=== PATIENT | female | born 1935 | race Caucasian/White ===

== ENCOUNTER 2018-07-12 16:40 | Emergency (ER) | payer MEDICARE, OTHER ==
[~2018-07-12] VITALS: Ht 160 cm; Wt 65.8 kg
[2018-07-12 17:40] LABS: Urine Bacteria NONE SEEN /hpf (None Seen); Urine Blood Negative /uL (Negative); Urine Specific Gravity 1.005 (1.001-1.035); Urine WBC <1 /hpf (0 - 5)
[2018-07-12 17:48] LABS: Basophils # (auto) 0.1 uL; Basophils % (auto) 0.8 % (0.0-2.0); Eosinophils # (auto) 0.1 uL; Eosinophils % (auto) 1.4 % (0.0-7.0); Hematocrit 40.7 % (36.0-46.0); Hemoglobin 13.6 g/dL (12.2-16.2); Lymphocytes # (auto) 1.2 uL; Lymphocytes % (auto) 15.3 % (10.0-50.0); Mean Corpuscular Hemoglobin 31.6 pg (28.0-32.0); Mean Corpuscular Hgb Conc. 33.5 g/dL (32.0-36.0); Mean Corpuscular Volume 94.4 fL (80.0-100.0); Monocytes # (auto) 0.8 uL; Monocytes % (auto) 10.9 % (0.0-12.0); Neutrophils # (auto) 5.5 uL; Neutrophils % (auto) 71.6 % (37.0-80.0); Platelet Count (auto) 199 10^3/uL (140-450); Red Blood Cells 4.31 10^6/uL (4.0-5.20); Red Cell Distribution Width 13.5 % (11.8-14.3); White Blood Cell 7.7 10^3/uL (4.4-10.8)
[2018-07-12 18:01] LABS: Alanine Aminotransferase 22 U/L (13-56); Albumin 3.9 g/dL (3.4-5.0); Anion Gap 7 (5-15); Aspartate Aminotransferase 14 U/L (15-37); BUN/Creatinine Ratio 18.3; Blood Urea Nitrogen 15 mg/dL (7-18); Calcium 9.1 mg/dL (8.5-10.1); Carbon Dioxide 24 mmol/L (21-32); Chloride 101 mmol/L (98-107); GFR African American 85 mL/min; GFR Non-African American 71 mL/min; Glucose 107 mg/dL (74-106); Potassium 4.3 mmol/L (3.5-5.1); Sodium 132 mmol/L (136-145)
[2018-07-12 18:06] LABS: Alkaline Phosphatase 101 U/L (45-117); Bilirubin, Total 0.8 mg/dL (0.2-1.0); Total Protein 7.2 g/dL (6.4-8.2)
[2018-07-12] MEDS ORDERED: SODIUM CHLORIDE 0.9% 1,000 ML IV ONE (20:26)
[2018-07-12] MEDS ORDERED: MORPHINE SULFATE 4 MG/ML SYR/VIAL IV PRN (20:30)
[2018-07-12] MEDS ORDERED: ONDANSETRON HCL 4 MG/2 ML VIAL IV ONE ×2 (20:30→22:15)
[2018-07-12] MEDS ORDERED: PROPRANOLOL HCL 20 MG TAB PO ONE (22:30)
[2018-07-13] MEDS ORDERED: LORazepam 2MG/ML-1ML VIAL ONE (01:14)
[2018-07-13 01:35] VITALS: BP 149/75
[2018-07-13] MEDS ORDERED: LORazepam 2MG/ML-1ML VIAL IV ONE (01:45)
== END 2018-07-13 05:06 | disposition home or self-care (01) ==
LOC: ER 16:43
DX: R10.84 Generalized abdominal pain (principal); E87.1 Hypo-osmolality and hyponatremia; I11.0 Hypertensive heart disease with heart failure; I50.9 Heart failure, unspecified; E78.5 Hyperlipidemia, unspecified; Z88.1 Allergy status to other antibiotic agents; Z88.2 Allergy status to sulfonamides; Z88.8 Allergy status to other drugs, medicaments and biological substances
CPT/HCPCS: 36415; 71045; 71046; 74176; 80053; 81001; 83690; 83880; 84484; 85025; 93005; 96374; 96375; 96376; 99285; J2270; J2405; J7030

== ENCOUNTER 2022-04-29 14:25 | Emergency (ER) | payer MEDICARE, OTHER ==
[~2022-04-29] VITALS: Ht 160 cm; Wt 59.0 kg
[2022-04-29] MEDS ORDERED: LORazepam 0.5 MG TAB PO ONE (14:45)
[2022-04-29] MEDS ORDERED: HYDROcodone-ACET 10/325MG TAB PO ONE (14:45)
[2022-04-29 15:54] VITALS: BP 124/58
== END 2022-04-29 21:45 | disposition home or self-care (01) ==
LOC: EDBD 14:25 → ER 14:25
DX: M79.10 Myalgia, unspecified site (principal); F41.9 Anxiety disorder, unspecified; I10 Essential (primary) hypertension; E78.5 Hyperlipidemia, unspecified; Z90.89 Acquired absence of other organs

== ENCOUNTER 2022-10-18 15:38 | Inpatient (IN) | payer MEDICARE, OTHER ==
[~2022-10-18] VITALS: Ht 175.3 cm; Wt 52.0 kg
[2022-10-18] MEDS ORDERED: SODIUM CHLORIDE 0.9% 500 ML IVB ONE (17:00)
[2022-10-18 17:46] LABS: Basophils # (auto) 0.1 10 ^3/uL (0-0.2); Basophils % (auto) 1.6 % (0.0-2.0); Eosinophils # (auto) 0.1 10 ^3/uL (0-0.8); Eosinophils % (auto) 0.6 % (0.0-7.0); Hematocrit 31.1 % (36.0-46.0); Hemoglobin 10.1 g/dL (12.2-16.2); Lymphocytes # (auto) 1.4 10 ^3/uL (0.4-5.4); Lymphocytes % (auto) 15.5 % (10.0-50.0); Mean Corpuscular Hgb Conc. 32.5 g/dL (32.0-36.0); Monocytes # (auto) 0.5 10 ^3/uL (0-1.3); Monocytes % (auto) 5.6 % (0.0-12.0); Neutrophils # (auto) 6.7 10 ^3/uL (1.6-8.6); Neutrophils % (auto) 76.7 % (37.0-80.0); Red Blood Cells 4.04 10^6/uL (4.0-5.20); Red Cell Distribution Width 16.9 % (11.8-14.3); White Blood Cell 8.7 10^3/uL (4.4-10.8)
[2022-10-18 18:04] LABS: Albumin 3.4 g/dL (3.4-5.0); BUN/Creatinine Ratio 31.4; Calcium 9.5 mg/dL (8.5-10.1); Magnesium 2.4 mg/dL (1.6-2.6); Potassium 4.5 mmol/L (3.5-5.1)
[2022-10-18 18:07] LABS: Bilirubin, Total 0.3 mg/dL (0.2-1.0); Total Protein 6.8 g/dL (6.4-8.2)
[2022-10-18] MEDS ORDERED: ACETAMINOPHEN 325 MG TAB PO PRN (18:45)
[2022-10-18] MEDS ORDERED: MORPHINE SULFATE INJ 2 MG/ml SYRG IV PRN (18:45)
[2022-10-18] MEDS ORDERED: ONDANSETRON HCL 4 MG/2 ML VIAL IV PRN (18:45)
[2022-10-18] MEDS ORDERED: NITROGLYCERIN 0.4 MG SL TAB SL PRN (18:45)
[2022-10-18] MEDS ORDERED: DOCUSATE SOD 100 MG CAP PO PRN (18:45)
[2022-10-18] MEDS: SODIUM CHLORIDE 0.9% 1,000 ML IV SCH (20:05)
[2022-10-18] MEDS: HYDROcodone-ACET 5/325MG TAB PO PRN (22:42)
[2022-10-18 23:17] LABS: Urine Bacteria NONE SEEN /hpf (None Seen); Urine Blood Negative /uL (Negative); Urine Mucus FEW (None Seen); Urine Specific Gravity 1.021 (1.001-1.035); Urine WBC 2 /hpf (0 - 5)
[2022-10-18 23:40] LABS: Amphetamine Screen, Urine NEGATIVE (NEGATIVE); Barbiturate Scree,Urine NEGATIVE (NEGATIVE); Benzodiazephine Screen, Urine NEGATIVE (NEGATIVE); Cannabinoid Screen, Urine NEGATIVE (NEGATIVE); Cocaine Screen, Urine NEGATIVE (NEGATIVE); Opiate Scree,Urine POSITIVE (NEGATIVE); Phencyclidine Screen, Urine NEGATIVE (NEGATIVE)
[2022-10-19] MEDS: HYDROcodone-ACET 5/325MG TAB PO PRN (02:52)
[2022-10-19 06:36] LABS: Monocytes # (auto) 0.5 10 ^3/uL (0-1.3); Nucleated Red Blood Cells % 0.1 %; White Blood Cell 6.6 10^3/uL (4.4-10.8)
[2022-10-19 06:37] LABS: Basophils # (auto) 0.1 10 ^3/uL (0-0.2); Basophils % (auto) 1.1 % (0.0-2.0); Eosinophils # (auto) 0.2 10 ^3/uL (0-0.8); Eosinophils % (auto) 2.3 % (0.0-7.0); Hematocrit 28.6 % (36.0-46.0); Hemoglobin 9.5 g/dL (12.2-16.2); Lymphocytes # (auto) 1.8 10 ^3/uL (0.4-5.4); Lymphocytes % (auto) 26.5 % (10.0-50.0); Mean Corpuscular Hemoglobin 25.9 pg (28.0-32.0); Mean Corpuscular Hgb Conc. 33.2 g/dL (32.0-36.0); Mean Corpuscular Volume 77.8 fL (80.0-100.0); Monocytes % (auto) 7.7 % (0.0-12.0); Neutrophils # (auto) 4.1 10 ^3/uL (1.6-8.6); Neutrophils % (auto) 62.4 % (37.0-80.0); Red Blood Cells 3.68 10^6/uL (4.0-5.20); Red Cell Distribution Width 16.7 % (11.8-14.3)
[2022-10-19 07:07] LABS: Albumin 3.1 g/dL (3.4-5.0); BUN/Creatinine Ratio 23.7; Bilirubin, Total 0.6 mg/dL (0.2-1.0); Calcium 8.5 mg/dL (8.5-10.1); Potassium 3.6 mmol/L (3.5-5.1); Total Protein 6.5 g/dL (6.4-8.2)
[2022-10-19] MEDS: PANTOPRAZOLE 40 MG/10 ML VIAL INJ IV SCH (09:00)
[2022-10-19] MEDS ORDERED: LORazepam 2MG/ML-1ML VIAL IV PRN (10:30)
[2022-10-19 11:08] LABS: Folate (Folic Acid) > 24.00 ng/mL (5.38-24)
[2022-10-19] MEDS: SODIUM CHLORIDE 0.9% 1,000 ML IV SCH (11:27)
[2022-10-19] MEDS: HALOPERIDOL LACTATE 5 MG/ML INJ VIAL IM PRN (17:03)
[2022-10-19] MEDS: traZODone HCL 50 MG TAB PO SCH (21:55)
[2022-10-20] MEDS: HALOPERIDOL LACTATE 5 MG/ML INJ VIAL IM PRN (04:17)
[2022-10-20 06:19] LABS: Basophils # (auto) 0.1 10 ^3/uL (0-0.2); Basophils % (auto) 0.9 % (0.0-2.0); Eosinophils # (auto) 0.1 10 ^3/uL (0-0.8); Eosinophils % (auto) 1.2 % (0.0-7.0); Hematocrit 30.5 % (36.0-46.0); Hemoglobin 9.8 g/dL (12.2-16.2); Lymphocytes # (auto) 1.5 10 ^3/uL (0.4-5.4); Lymphocytes % (auto) 19.8 % (10.0-50.0); Monocytes # (auto) 0.7 10 ^3/uL (0-1.3); Monocytes % (auto) 9.9 % (0.0-12.0); Neutrophils # (auto) 5.1 10 ^3/uL (1.6-8.6); Neutrophils % (auto) 68.2 % (37.0-80.0); Nucleated Red Blood Cells % 0.1 %; Red Blood Cells 3.91 10^6/uL (4.0-5.20); Red Cell Distribution Width 17.4 % (11.8-14.3); White Blood Cell 7.5 10^3/uL (4.4-10.8)
[2022-10-20 06:45] LABS: Potassium 3.6 mmol/L (3.5-5.1)
[2022-10-20 06:54] LABS: Albumin 3.3 g/dL (3.4-5.0); BUN/Creatinine Ratio 20.9; Bilirubin, Total 0.5 mg/dL (0.2-1.0); Calcium 8.9 mg/dL (8.5-10.1); Total Protein 6.8 g/dL (6.4-8.2)
[2022-10-20] MEDS: SODIUM CHLORIDE 0.9% 1,000 ML IV SCH ×2 (08:15→17:19)
[2022-10-20] MEDS ORDERED: CYANOCOBALAMIN (B-12) 1000 MCG/1 ML VIAL IM ONE (09:15)
[2022-10-20] MEDS: CYANOCOBALAMIN 500 MCG TAB PO SCH (09:49)
[2022-10-20] MEDS: PANTOPRAZOLE 40 MG/10 ML VIAL INJ IV SCH (09:49)
[2022-10-20] MEDS ORDERED: MORPHINE SULFATE INJ 2 MG/ml SYRG IV PRN (16:15)
[2022-10-20 22:00] VITALS: BP 141/70
[2022-10-20 22:30] VITALS: BP_SYST 141; BP_DIAS 70; BP_DIAS 71
[2022-10-20] MEDS: traZODone HCL 50 MG TAB PO SCH (23:04)
[2022-10-20] MEDS: HYDROcodone-ACET 5/325MG TAB PO PRN (23:23)
[2022-10-21] VITALS (7 sets, daily range): BP systolic 111–151; BP diastolic 67–90
[2022-10-21] MEDS: CYANOCOBALAMIN 500 MCG TAB PO SCH (09:25)
[2022-10-21] MEDS: PANTOPRAZOLE 40 MG/10 ML VIAL INJ IV SCH (09:25)
[2022-10-21] MEDS: SODIUM CHLORIDE 0.9% 1,000 ML IV SCH (13:25)
[2022-10-21] MEDS ORDERED: MAGN400S25 PO (13:58)
[2022-10-21] MEDS ORDERED: CHOL20007 PO (13:58)
[2022-10-21] MEDS ORDERED: DOCU100T15 PO (13:58)
[2022-10-21] MEDS ORDERED: HYDR-4902 PO (13:58)
[2022-10-21] MEDS ORDERED: BISA10SU5 RE (13:58)
[2022-10-21] MEDS ORDERED: MECL12.514 PO (13:58)
[2022-10-21] MEDS ORDERED: EZET10TA22 PO (13:58)
[2022-10-21] MEDS ORDERED: IPRAAER6 IN (13:58)
[2022-10-21] MEDS ORDERED: ACET-1156 PO (13:58)
[2022-10-21] MEDS ORDERED: OMEP20TA PO (13:58)
[2022-10-21] MEDS ORDERED: VENL1TAB99 PO (13:58)
[2022-10-21] MEDS ORDERED: DIPH25CA29 PO (13:58)
[2022-10-21] MEDS ORDERED: CARV6.2551 PO (13:58)
[2022-10-21] MEDS ORDERED: SODIENE35 RE (13:58)
[2022-10-21] MEDS ORDERED: ATOR20TA PO (13:58)
[2022-10-21] MEDS ORDERED: DICY20TA PO (13:58)
[2022-10-21] MEDS: HYDROcodone-ACET 5/325MG TAB PO PRN ×2 (18:01→22:57)
[2022-10-21] MEDS: VENLAFAXINE HCL 37.5MG TABLET PO SCH (22:49)
[2022-10-21] MEDS: DICYCLOMINE HCL 10 MG CAP PO SCH (22:50)
[2022-10-21] MEDS: traZODone HCL 50 MG TAB PO SCH (22:50)
[2022-10-21] MEDS: MECLIZINE HCL 25 MG TAB PO SCH (22:51)
[2022-10-21] MEDS: CARVEDILOL 3.125 MG TAB PO SCH (22:52)
[2022-10-21] MEDS: ATORVASTATIN 20 MG TAB PO SCH (22:53)
[2022-10-22 05:00] VITALS: BP 146/73
[2022-10-22] MEDS: DICYCLOMINE HCL 10 MG CAP PO SCH ×3 (06:01→22:31)
[2022-10-22] MEDS: SODIUM CHLORIDE 0.9% 1,000 ML IV SCH (06:01)
[2022-10-22] MEDS: HYDROcodone-ACET 5/325MG TAB PO PRN ×3 (06:07→22:30)
[2022-10-22 09:00] VITALS: BP 116/56
[2022-10-22] MEDS: CHOLECALCIFEROL (VITD3) 1,000UNIT=25mCg TAB PO SCH (10:00)
[2022-10-22] MEDS: MECLIZINE HCL 25 MG TAB PO SCH ×2 (10:00→22:32)
[2022-10-22] MEDS: PANTOPRAZOLE 40 MG/10 ML VIAL INJ IV SCH (10:00)
[2022-10-22] MEDS: CYANOCOBALAMIN 500 MCG TAB PO SCH (10:00)
[2022-10-22] MEDS: EZETIMIBE 10 MG TABLET PO SCH (10:00)
[2022-10-22] MEDS: CARVEDILOL 3.125 MG TAB PO SCH ×2 (10:02→22:32)
[2022-10-22 17:00] VITALS: BP 139/55
[2022-10-22] MEDS: MILK OF MAGNESIA 30ML SUSP PO PRN (19:01)
[2022-10-22 22:00] VITALS: BP 127/57
[2022-10-22] MEDS: VENLAFAXINE HCL 37.5MG TABLET PO SCH (22:31)
[2022-10-22] MEDS: traZODone HCL 50 MG TAB PO SCH (22:31)
[2022-10-22] MEDS: ATORVASTATIN 20 MG TAB PO SCH (22:31)
[2022-10-23 05:00] VITALS: BP 157/60
[2022-10-23] MEDS: DICYCLOMINE HCL 10 MG CAP PO SCH ×3 (05:43→22:52)
[2022-10-23 06:07] LABS: Basophils # (auto) 0 10 ^3/uL (0-0.2); Basophils % (auto) 0.4 % (0.0-2.0); Eosinophils # (auto) 0.2 10 ^3/uL (0-0.8); Neutrophils # (auto) 3.7 10 ^3/uL (1.6-8.6)
[2022-10-23 06:10] LABS: Eosinophils % (auto) 3.1 % (0.0-7.0); Hematocrit 25.5 % (36.0-46.0); Hemoglobin 8.2 g/dL (12.2-16.2); Lymphocytes # (auto) 1.9 10 ^3/uL (0.4-5.4); Lymphocytes % (auto) 29.8 % (10.0-50.0); Mean Corpuscular Hemoglobin 25.2 pg (28.0-32.0); Mean Corpuscular Hgb Conc. 32.2 g/dL (32.0-36.0); Mean Corpuscular Volume 78.2 fL (80.0-100.0); Monocytes # (auto) 0.7 10 ^3/uL (0-1.3); Monocytes % (auto) 10.3 % (0.0-12.0); Neutrophils % (auto) 56.4 % (37.0-80.0); Nucleated Red Blood Cells % 0.2 %; Red Blood Cells 3.27 10^6/uL (4.0-5.20); Red Cell Distribution Width 17.2 % (11.8-14.3); White Blood Cell 6.5 10^3/uL (4.4-10.8)
[2022-10-23 06:24] LABS: Potassium 4.2 mmol/L (3.5-5.1)
[2022-10-23 06:30] LABS: Albumin 2.5 g/dL (3.4-5.0); BUN/Creatinine Ratio 40.3; Calcium 8.3 mg/dL (8.5-10.1)
[2022-10-23 06:33] LABS: Bilirubin, Total 0.2 mg/dL (0.2-1.0); Total Protein 5.7 g/dL (6.4-8.2)
[2022-10-23 09:00] VITALS: BP 155/52
[2022-10-23] MEDS: CARVEDILOL 3.125 MG TAB PO SCH ×2 (10:30→22:52)
[2022-10-23] MEDS: PANTOPRAZOLE 40 MG/10 ML VIAL INJ IV SCH (10:31)
[2022-10-23] MEDS: MECLIZINE HCL 25 MG TAB PO SCH ×2 (10:31→22:52)
[2022-10-23] MEDS: CYANOCOBALAMIN 500 MCG TAB PO SCH (10:31)
[2022-10-23] MEDS: HYDROcodone-ACET 5/325MG TAB PO PRN ×2 (10:31→20:52)
[2022-10-23] MEDS: EZETIMIBE 10 MG TABLET PO SCH (10:33)
[2022-10-23] MEDS: CHOLECALCIFEROL (VITD3) 1,000UNIT=25mCg TAB PO SCH (10:54)
[2022-10-23] MEDS ORDERED: CYAN500T3 PO (12:08)
[2022-10-23 13:00] VITALS: BP 147/56
[2022-10-23] MEDS: SODIUM CHLORIDE 0.9% 1,000 ML IV SCH (15:42)
[2022-10-23 16:00] VITALS: BP 146/62
[2022-10-23] MEDS: MILK OF MAGNESIA 30ML SUSP PO PRN (20:52)
[2022-10-23 21:28] VITALS: BP 120/65
[2022-10-23] MEDS: traZODone HCL 50 MG TAB PO SCH (22:52)
[2022-10-23] MEDS: ATORVASTATIN 20 MG TAB PO SCH (22:52)
[2022-10-23] MEDS: VENLAFAXINE HCL 37.5MG TABLET PO SCH (22:52)
[2022-10-24 04:30] VITALS: BP 130/70
[2022-10-24] MEDS: DICYCLOMINE HCL 10 MG CAP PO SCH (05:52)
[2022-10-24] MEDS: HYDROcodone-ACET 5/325MG TAB PO PRN (05:52)
[2022-10-24] MEDS: SODIUM CHLORIDE 0.9% 1,000 ML IV SCH (08:05)
[2022-10-24 09:00] VITALS: BP 146/60
[2022-10-24] MEDS: EZETIMIBE 10 MG TABLET PO SCH (10:00)
[2022-10-24] MEDS: MECLIZINE HCL 25 MG TAB PO SCH (10:21)
[2022-10-24] MEDS: CHOLECALCIFEROL (VITD3) 1,000UNIT=25mCg TAB PO SCH (10:21)
[2022-10-24] MEDS: CYANOCOBALAMIN 500 MCG TAB PO SCH (10:22)
[2022-10-24] MEDS: CARVEDILOL 3.125 MG TAB PO SCH (10:22)
[2022-10-24] MEDS: PANTOPRAZOLE 40 MG/10 ML VIAL INJ IV SCH (10:24)
== END 2022-10-24 11:50 | DRG 71 ==
LOC: ER 15:38 → EDUNIT# 15:38 → EDBD 15:38 → TELE 18:39 → TELE-CENTR 10-20 21:25
PROVIDERS: ADMIT Internal Medicine; ATTEND Internal Medicine
DX: G93.41 Metabolic encephalopathy (principal); F03.92 Unspecified dementia, unspecified severity, with psychotic disturbance; R44.3 Hallucinations, unspecified; E78.5 Hyperlipidemia, unspecified; Z20.822 Contact with and (suspected) exposure to COVID-19; I10 Essential (primary) hypertension; F41.9 Anxiety disorder, unspecified; F32.A Depression, unspecified; Z88.1 Allergy status to other antibiotic agents; Z88.2 Allergy status to sulfonamides; Z88.8 Allergy status to other drugs, medicaments and biological substances
CPT/HCPCS: 36415; 70450; 71045; 80053; 80307; 80320; 81001; 82140; 82607; 82746; 82962; 83090; 83735; 84443; 85025; 87426; 93005; 95819; 97110; 97116; 97530; C9113; G0378

== ENCOUNTER 2023-03-19 16:45 | Inpatient (IN) | payer MEDICARE, OTHER ==
[~2023-03-19] VITALS: Ht 157.5 cm; Wt 54.4 kg
[2023-03-19] MEDS: SODIUM CHLORIDE 0.9% 1,000 ML IV SCH (00:03)
[~2023-03-19 16:45] MED LIST: ACET-1881 PO; ATOR20TA PO; BISA10SU5 RE; CARV6.2551 PO; CHOL20007 PO; CYAN500T3 PO; DICY20TA PO; DIPH-753 PO; DOCU100T15 PO; EZET10TA22 PO; HYDR-4902 PO; IPRAAER6 IN; MAGN400S25 PO; MECL1TAB31 PO; OMEP20TA PO; SODIENE35 RE; VENL1TAB99 PO
[2023-03-19] MEDS ORDERED: SODIUM CHLORIDE 0.9% 1,000 ML IVB ONE (17:15)
[2023-03-19 18:40] LABS: Basophils # (auto) 0.1 10 ^3/uL (0-0.2); Basophils % (auto) 0.6 % (0.0-2.0); Eosinophils # (auto) 0.2 10 ^3/uL (0-0.8); Hematocrit 40.3 % (36.0-46.0); Hemoglobin 13.3 g/dL (12.2-16.2); Lymphocytes # (auto) 2.2 10 ^3/uL (0.4-5.4); Lymphocytes % (auto) 20.1 % (10.0-50.0); Mean Corpuscular Hgb Conc. 32.9 g/dL (32.0-36.0); Monocytes # (auto) 0.9 10 ^3/uL (0-1.3); Monocytes % (auto) 7.9 % (0.0-12.0); Neutrophils # (auto) 7.5 10 ^3/uL (1.6-8.6); Neutrophils % (auto) 69.4 % (37.0-80.0); Nucleated Red Blood Cells % 0.2 %; Red Blood Cells 4.43 10^6/uL (4.0-5.20); Red Cell Distribution Width 17.1 % (11.8-14.3); White Blood Cell 10.8 10^3/uL (4.4-10.8)
[2023-03-19 18:54] LABS: INR 0.99 (0.9-1.15); Partial Thromboplastin Time 23.4 SEC (24.5-34.5); Prothrombin Time 10.4 sec (9.3-11.8)
[2023-03-19 19:53] LABS: Albumin 3.5 g/dL (3.4-5.0); Potassium 4.5 mmol/L (3.5-5.1)
[2023-03-19 19:56] LABS: Bilirubin, Total 0.4 mg/dL (0.2-1.0)
[2023-03-19] MEDS ORDERED: DOCUSATE SOD 100 MG CAP PO PRN (21:30)
[2023-03-19] MEDS ORDERED: MORPHINE SULFATE INJ 2 MG/ml SYRG IV PRN (23:00)
[2023-03-19] MEDS ORDERED: NITROGLYCERIN 0.4 MG SL TAB SL PRN (23:00)
[2023-03-19 23:57] VITALS: PULSE 68; RESP 14; O2SAT 96
[2023-03-20] MEDS: hydrALAZINE HCL 20 MG/ML VL IV PRN ×2 (00:53→21:17)
[2023-03-20] MEDS: FAMOTIDINE (10MG/ML) 2ML VL IV SCH ×3 (00:54→22:25)
[2023-03-20 05:03] LABS: Urine Bacteria FEW /hpf (None Seen); Urine Blood Negative /uL (Negative); Urine Clarity HAZY (Clear); Urine Color Colorless (Yellow); Urine Mucus FEW (None Seen); Urine Protein, UAD Negative (Negative); Urine Urobilinogen Normal (Negative); Urine WBC 95 /hpf (0 - 5)
[2023-03-20] MEDS: HYDROcodone-ACET 5/325MG TAB PO PRN ×4 (05:56→20:33)
[2023-03-20 06:28] LABS: Albumin 3.3 g/dL (3.4-5.0); Calcium 8.5 mg/dL (8.5-10.1); Potassium 3.8 mmol/L (3.5-5.1)
[2023-03-20 06:33] LABS: Bilirubin, Total 0.5 mg/dL (0.2-1.0); Total Protein 6.5 g/dL (6.4-8.2)
[2023-03-20 06:41] LABS: Basophils # (auto) 0 10 ^3/uL (0-0.2); Basophils % (auto) 0.6 % (0.0-2.0); Eosinophils # (auto) 0.2 10 ^3/uL (0-0.8); Eosinophils % (auto) 2.4 % (0.0-7.0); Hematocrit 37.6 % (36.0-46.0); Hemoglobin 12.6 g/dL (12.2-16.2); Lymphocytes # (auto) 1.6 10 ^3/uL (0.4-5.4); Lymphocytes % (auto) 20.6 % (10.0-50.0); Mean Corpuscular Hemoglobin 30.1 pg (28.0-32.0); Mean Corpuscular Hgb Conc. 33.6 g/dL (32.0-36.0); Mean Corpuscular Volume 89.5 fL (80.0-100.0); Monocytes # (auto) 0.7 10 ^3/uL (0-1.3); Monocytes % (auto) 8.8 % (0.0-12.0); Neutrophils # (auto) 5.4 10 ^3/uL (1.6-8.6); Neutrophils % (auto) 67.6 % (37.0-80.0); Nucleated Red Blood Cells % 0.1 %; Red Cell Distribution Width 17.3 % (11.8-14.3)
[2023-03-20 07:25] VITALS: PULSE 79; RESP 12; O2SAT 95
[2023-03-20] MEDS: amLODIPine BESYLATE 5 MG TAB PO SCH (10:22)
[2023-03-20] MEDS ORDERED: cefTRIAXone 1GM/50ML D5W 50 ML IV ONE (12:30)
[2023-03-20] MEDS: SODIUM CHLORIDE 0.9% 1,000 ML IV SCH (15:39)
[2023-03-20] MEDS: ONDANSETRON HCL 4 MG/2 ML VIAL IV PRN (23:17)
[2023-03-21 07:50] VITALS: PULSE 60; RESP 9; O2SAT 100
[2023-03-21] MEDS: cefTRIAXone 1GM/50ML D5W 50 ML IV SCH (09:36)
[2023-03-21] MEDS: SODIUM CHLORIDE 0.9% 1,000 ML IV SCH ×2 (09:36→23:24)
[2023-03-21] MEDS: FAMOTIDINE (10MG/ML) 2ML VL IV SCH ×2 (09:41→22:28)
[2023-03-21] MEDS: amLODIPine BESYLATE 5 MG TAB PO SCH (09:41)
[2023-03-21] MEDS ORDERED: LORazepam 2MG/ML-1ML VIAL IV PRN (12:15)
[2023-03-21] MEDS: ONDANSETRON HCL 4 MG/2 ML VIAL IV PRN (12:59)
[2023-03-21] MEDS ORDERED: HALOPERIDOL LACTATE 5 MG/ML INJ VIAL IM ONE (16:30)
[2023-03-21 19:40] VITALS: PULSE 83; RESP 14; O2SAT 93
[2023-03-21] MEDS: hydrALAZINE HCL 20 MG/ML VL IV PRN (23:09)
[2023-03-22] MEDS: hydrALAZINE HCL 20 MG/ML VL IV PRN ×2 (06:54→23:56)
[2023-03-22 07:50] VITALS: PULSE 83; RESP 16; O2SAT 95
[2023-03-22] MEDS: cefTRIAXone 1GM/50ML D5W 50 ML IV SCH (09:27)
[2023-03-22] MEDS: amLODIPine BESYLATE 5 MG TAB PO SCH (09:43)
[2023-03-22] MEDS: FAMOTIDINE (10MG/ML) 2ML VL IV SCH ×2 (09:43→21:33)
[2023-03-22] MEDS ORDERED: HALOPERIDOL LACTATE 5 MG/ML INJ VIAL IM PRN (09:45)
[2023-03-22] MEDS: HYDROcodone-ACET 5/325MG TAB PO PRN ×2 (10:02→21:33)
[2023-03-22] MEDS: SODIUM CHLORIDE 0.9% 1,000 ML IV SCH (16:16)
[2023-03-22 19:40] VITALS: PULSE 87; O2SAT 93
[2023-03-22] MEDS: ONDANSETRON HCL 4 MG/2 ML VIAL IV PRN (21:33)
[2023-03-23] VITALS (9 sets, daily range): BP systolic 121–164; BP diastolic 51–76; PULSE 60–114; RESP 17–22; TEMP 97.7–102; O2SAT 0–96
[2023-03-23] MEDS: ACETAMINOPHEN 325 MG TAB PO PRN ×4 (01:39→16:21)
[2023-03-23] MEDS: cefTRIAXone 1GM/50ML D5W 50 ML IV SCH (09:15)
[2023-03-23] MEDS: FAMOTIDINE (10MG/ML) 2ML VL IV SCH ×2 (09:15→22:08)
[2023-03-23] MEDS: SODIUM CHLORIDE 0.9% 1,000 ML IV SCH (09:15)
[2023-03-23] MEDS: amLODIPine BESYLATE 5 MG TAB PO SCH (09:16)
[2023-03-23] MEDS: ENOXAPARIN SOD 30 MG/0.3 ML SYRINGE SC SCH (09:16)
[2023-03-23] MEDS ORDERED: ACETAMINOPHEN 650 MG RECT SUPP PR PRN (18:00)
[2023-03-24 05:00] VITALS: BP 142/64; PULSE 116; RESP 22; TEMP 97.6; O2SAT 97
[2023-03-24 08:00] VITALS: BP 104/70; PULSE 117; PULSE 118; RESP 24; TEMP 97.5; O2SAT 95
[2023-03-24 09:00] VITALS: BP 118/60; PULSE 117; RESP 22; TEMP 97.3; O2SAT 100
[2023-03-24] MEDS: cefTRIAXone 1GM/50ML D5W 50 ML IV SCH (09:29)
[2023-03-24] MEDS: ENOXAPARIN SOD 30 MG/0.3 ML SYRINGE SC SCH ×2 (09:30→10:00)
[2023-03-24] MEDS: amLODIPine BESYLATE 5 MG TAB PO SCH (09:35)
[2023-03-24 09:41] LABS: Hematocrit 50.8 % (36.0-46.0); Hemoglobin 16.2 g/dL (12.2-16.2); Mean Corpuscular Hgb Conc. 31.9 g/dL (32.0-36.0); Red Cell Distribution Width 18.4 % (11.8-14.3); White Blood Cell 13.9 10^3/uL (4.4-10.8)
[2023-03-24 09:49] LABS: Basophils % (manual) 0 (0.0-2.0); Promyelocytes % 0
[2023-03-24 09:50] LABS: Blast Cells 0; Reactive Lymphocytes 0
[2023-03-24] MEDS: FAMOTIDINE (10MG/ML) 2ML VL IV SCH (10:00)
[2023-03-24 10:11] LABS: Albumin 2.6 g/dL (3.4-5.0); BUN/Creatinine Ratio 12.8 (10.0-20.0); Calcium 8.8 mg/dL (8.5-10.1); Magnesium 2.9 mg/dL (1.6-2.6); Potassium 3.9 mmol/L (3.5-5.1)
[2023-03-24 10:14] LABS: Bilirubin, Total 0.7 mg/dL (0.2-1.0); Phosphorus 5.2 mg/dL (2.5-4.90); Total Protein 5.8 g/dL (6.4-8.2)
[2023-03-24 10:26] LABS: Lactic Acid w/Reflex 8.1 mmol/L (0.4-2.0)
[2023-03-24] MEDS ORDERED: SODIUM BICARBONATE 50ML VIAL 150 ML in D5W 5% 1,000 ML IV ONE (10:30)
[2023-03-24 12:47] LABS: Band Neutrophils % (manual) 24; Lymphocytes % (manual) 23 (10.0-50.0)
[2023-03-24 12:48] LABS: Eosinophils % (manual) 4 (0-7); Monocytes % (manual) 10 (0-12); Myelocytes % 1
[2023-03-24 12:49] LABS: Metamyelocytes % 2
[2023-03-24 12:52] LABS: Anisocytosis Slight; Hypochromia Slight; Platelet Estimate Decreased; Tear Drop Cells FEW
[2023-03-25] MEDS ORDERED: FAMOTIDINE (10MG/ML) 2ML VL IV SCH (10:00)
== END 2023-03-24 15:00 | DRG 70 ==
LOC: ER 16:45 → EDBD 16:45 → TELE 22:57 → TELE-WESTW 03-22 22:46
PROVIDERS: ADMIT Nurse Practitioner; ATTEND Nurse Practitioner
DX: G93.41 Metabolic encephalopathy (principal); N17.0 Acute kidney failure with tubular necrosis; N30.00 Acute cystitis without hematuria; E87.20 Acidosis, unspecified; I16.0 Hypertensive urgency; R55 Syncope and collapse; R29.6 Repeated falls; R26.81 Unsteadiness on feet; E78.00 Pure hypercholesterolemia, unspecified; G89.4 Chronic pain syndrome; K52.9 Noninfective gastroenteritis and colitis, unspecified; I10 Essential (primary) hypertension; Z88.8 Allergy status to other drugs, medicaments and biological substances; Z88.3 Allergy status to other anti-infective agents; Z82.49 Family history of ischemic heart disease and other diseases of the circulatory system
CPT/HCPCS: 36415; 36600; 70450; 70551; 71045; 72125; 80053; 81001; 82805; 82962; 83605; 83735; 83880; 84100; 84484; 85007; 85025; 85027; 85610; 85730; 87040; 87086; 87088; 87186; 93005; 93306; 93886; 95819; 96360; 97163; G0378; J0696; J2405; J3490